=== PATIENT | female | born 1980 | race Caucasian/White ===

== ENCOUNTER 2017-04-06 02:17 | Emergency (ER) | payer SELFPAY ==
[~2017-04-06] VITALS: Ht 172.7 cm; Wt 75.0 kg
[~2017-04-06 02:17] MED LIST: ABILIFY10 MG PO; AMOXICILLIN500 MG PO; ATIVAN1 MG PO; CORTISPORIN OTI10 ML AD; FERROUS FUM324 MG PO; GABAPENTIN300 MG PO; HYDROCHLOROT12.5 MG PO; HYDROCHLOROT25 MG PO; LOSARTAN POT25 MG PO; LOSARTAN POT50 MG PO; PRILOSEC40 MG PO; PROTONIX40 MG PO; QVAR40 MCG IN; QVAR80 MCG IN; TRAZODONE100 MG PO; [UNRECOGNIZED DRUG - OTHER] PO
[2017-04-06 02:53] LABS: INFLUENZA A NONE DETECTED (NONE DETECT); INFLUENZA B NONE DETECTED (NONE DETECT)
[2017-04-06] MEDS ORDERED: AMOXICILLIN875 MG PO (03:04)
[2017-04-06] MEDS ORDERED: ROBITUSSIN AC10 ML PO (03:04)
[2017-04-06 03:19] VITALS: BP 138/100
== END 2017-04-06 03:25 | disposition home or self-care (01) | DRG 153 ==
LOC: ED 02:17
PROVIDERS: Emergency Medicine
DX: J02.0 Streptococcal pharyngitis (principal); F17.210 Nicotine dependence, cigarettes, uncomplicated; F41.9 Anxiety disorder, unspecified; F31.9 Bipolar disorder, unspecified; J45.909 Unspecified asthma, uncomplicated; K21.9 Gastro-esophageal reflux disease without esophagitis; I10 Essential (primary) hypertension

== ENCOUNTER 2017-07-25 10:36 | Emergency (ER) | payer SELFPAY ==
[~2017-07-25] VITALS: Ht 172.7 cm; Wt 81.8 kg
[~2017-07-25 10:36] MED LIST changes: +AMOXICILLIN875 MG PO; +ROBITUSSIN AC10 ML PO
[2017-07-25] MEDS ORDERED: LOSARTAN POT25 MG PO (10:49)
[2017-07-25] MEDS ORDERED: GABAPENTIN100 MG PO (10:49)
[2017-07-25] MEDS ORDERED: FAMOTIDINE20 M1 PO (10:49)
[2017-07-25 10:50] VITALS: BP 142/81
[2017-07-25] MEDS ORDERED: STERAPRED DS10 MG PO (11:09)
== END 2017-07-25 11:18 | disposition home or self-care (01) | DRG 74 ==
LOC: ED 10:36
DX: G56.02 Carpal tunnel syndrome, left upper limb (principal); M79.642 Pain in left hand; M79.7 Fibromyalgia; R20.2 Paresthesia of skin

== ENCOUNTER 2017-08-19 01:28 | Emergency (ER) | payer SELFPAY ==
[~2017-08-19] VITALS: Ht 172.7 cm; Wt 81.8 kg
[~2017-08-19 01:28] MED LIST changes: +FAMOTIDINE20 M1 PO; +GABAPENTIN100 MG PO; +STERAPRED DS10 MG PO
[2017-08-19 02:12] LABS: HEMATOCRIT 39.9 % (37.0-47.0); HEMOGLOBIN 13.3 g/dl (12.0-16.0); IMMATURE GRANULOCYTES 0.4 % (0.0-1.0); MEAN CELL VOLUME 88.3 fL CALC (80.0-100.0); MEAN CORPUSCULAR HGB 29.4 pG CALC (26.0-32.0); MEAN CORPUSCULAR HGB CONC 33.3 g/L CALC (32.0-36.0); NEUT# 3.17 thou/uL (2.00-7.15); RED BLOOD COUNT 4.52 mill/uL (4.20-5.60); RED CELL DISTRI WIDTH 13.2 % (11.5-15.5)
[2017-08-19 02:24] LABS: ALBUMIN 3.8 g/dL (3.2-5.0); ALKALINE PHOSPHATASE 108 u/l (38-126); ANION GAP 16 (6-22 (CALC)); BILIRUBIN, TOTAL 0.6 mg/dL (0.0-1.4); BUN 6 mg/dL (7-17); BUN/CREATININE RATIO 9 (12-20 (CALC)); CARBON DIOXIDE 25 mmol/l (22-30); CHLORIDE 104 mmol/l (95-108); CREATININE 0.7 mg/dL (0.5-1.0); GFR > 60 ML/MIN (>=60 (CALC)); GFR FOR AFR.AMER. > 60 ML/MIN (>=60 (CALC)); LIPASE 68 u/l (23-300); SGOT/AST 21 u/l (14-36); SGPT/ALT 35 u/l (9-52); SODIUM 142 mmol/l (137-146); TOTAL PROTEIN 7.2 g/dL (6.3-8.2)
[2017-08-19 02:31] LABS: ACT PARTIAL THROMBO TIME 28.3 SECONDS (20.0-32.5); PROTHROMBIN TIME 11.5 SECONDS (9.0-12.5)
[2017-08-19 02:36] LABS: MYOGLOBIN 43 ng/mL (0 - 62)
[2017-08-19 05:59] VITALS: BP 121/79
[2017-08-20] MEDS ORDERED: BACTRIM DS1 TAB PO (11:01)
[2017-08-20] MEDS ORDERED: KEFLEX500 M1 PO (11:01)
[2017-08-20] MEDS ORDERED: BACTROBAN TOP (11:03)
== END 2017-08-19 06:04 | disposition left against medical advice (07) | DRG 313 ==
LOC: ED 01:28
PROVIDERS: Emergency Medicine
DX: R07.9 Chest pain, unspecified (principal); I10 Essential (primary) hypertension; G62.9 Polyneuropathy, unspecified; F31.9 Bipolar disorder, unspecified; M79.7 Fibromyalgia; F17.210 Nicotine dependence, cigarettes, uncomplicated; Z91.19 Patient's noncompliance with other medical treatment and regimen

== ENCOUNTER 2017-08-20 10:26 | Emergency (ER) | payer SELFPAY ==
[~2017-08-20] VITALS: Ht 172.7 cm; Wt 79.0 kg
[2017-08-20] MEDS ORDERED: KEFLEX500 M1 PO (11:01)
[2017-08-20] MEDS ORDERED: BACTRIM DS1 TAB PO (11:01)
[2017-08-20] MEDS ORDERED: BACTROBAN TOP (11:03)
[2017-08-20 11:06] VITALS: BP 144/96
== END 2017-08-20 11:10 | disposition home or self-care (01) | DRG 600 ==
LOC: ED 10:26
DX: N61.1 Abscess of the breast and nipple (principal); L02.211 Cutaneous abscess of abdominal wall; G62.9 Polyneuropathy, unspecified; I10 Essential (primary) hypertension; F31.9 Bipolar disorder, unspecified; M79.7 Fibromyalgia; F17.210 Nicotine dependence, cigarettes, uncomplicated

== ENCOUNTER 2017-09-05 19:18 | Emergency (ER) | payer SELFPAY ==
[~2017-09-05] VITALS: Ht 172.7 cm; Wt 79.0 kg
[~2017-09-05 19:18] MED LIST changes: +BACTRIM DS1 TAB PO; +BACTROBAN TOP; +KEFLEX500 M1 PO
[2017-09-05 19:50] VITALS: BP 162/108
== END 2017-09-05 19:36 | disposition left against medical advice (07) | DRG 305 ==
LOC: ED 19:18
DX: I10 Essential (primary) hypertension (principal); G62.9 Polyneuropathy, unspecified; F31.9 Bipolar disorder, unspecified; M79.7 Fibromyalgia; F17.210 Nicotine dependence, cigarettes, uncomplicated; Z91.14 Patient's other noncompliance with medication regimen; Z91.19 Patient's noncompliance with other medical treatment and regimen

== ENCOUNTER 2017-11-04 22:11 | Emergency (ER) | payer SELFPAY ==
[~2017-11-04] VITALS: Ht 172.7 cm; Wt 72.7 kg
[2017-11-04 22:34] LABS: HEMATOCRIT 39.6 % (37.0-47.0); HEMOGLOBIN 13.4 g/dl (12.0-16.0); IMMATURE GRANULOCYTES 0.2 % (0.0-5.0); MEAN CORPUSCULAR HGB 29.8 pG CALC (26.0-32.0); MEAN CORPUSCULAR HGB CONC 33.8 g/L CALC (32.0-36.0); NEUT# 3.38 thou/uL (2.00-7.15); RED BLOOD COUNT 4.5 mill/uL (4.20-5.60); RED CELL DISTRI WIDTH 13.2 % (11.5-15.5)
[2017-11-04 22:44] LABS: ALBUMIN 4.1 g/dL (3.2-5.0); ALKALINE PHOSPHATASE 109 u/l (38-126); ANION GAP 16 (6-22 (CALC)); BILIRUBIN, TOTAL 0.7 mg/dL (0.0-1.4); BUN 11 mg/dL (7-17); BUN/CREATININE RATIO 13 (12-20 (CALC)); CARBON DIOXIDE 24 mmol/l (22-30); CHLORIDE 106 mmol/l (95-108); CREATININE 0.9 mg/dL (0.5-1.0); GFR > 60 ML/MIN (>=60 (CALC)); GFR FOR AFR.AMER. > 60 ML/MIN (>=60 (CALC)); POTASSIUM 3.1 mmol/l (3.5-5.1); SGOT/AST 28 u/l (14-36); SGPT/ALT 45 u/l (9-52); SODIUM 142 mmol/l (137-146); TOTAL PROTEIN 7.6 g/dL (6.3-8.2)
[2017-11-04 22:51] LABS: URINE BLOOD DIPSTICK NEGATIVE (NEGATIVE); URINE COLOR YELLOW; URINE GLUCOSE - DIPSTICK NEGATIVE (NEGATIVE); URINE KETONE 15 mg/dL (NEGATIVE); URINE LEUK ESTERASE NEGATIVE (NEGATIVE); URINE NITRITE - DIPSTICK NEGATIVE (Negative); URINE PROTEIN - DIPSTICK TRACE mg/dL (NEG-TRACE); URINE SPECIFIC GRAVITY 1.025
[2017-11-04 22:54] LABS: BARBITURATES NEGATIVE (NEGATIVE); COCAINE NEGATIVE (NEGATIVE); METHADONE NEGATIVE (NEGATIVE); OXCYCODONE NEGATIVE (NEGATIVE); TETRAHYDROCANNABIONOL NEGATIVE (NEGATIVE); TRICYLIC ANTIDEPRESSANTS NEGATIVE (NEGATIVE); URINE BILIRUBIN - DIPSTICK SMALL (NEGATIVE); URINE CLARITY CLEAR
[2017-11-04 22:56] LABS: MYOGLOBIN 43 ng/mL (0 - 62)
[2017-11-05 03:18] VITALS: BP 131/78
== END 2017-11-05 03:20 | disposition home or self-care (01) | DRG 313 ==
LOC: ED 22:11
PROVIDERS: Emergency Medicine
DX: R07.89 Other chest pain (principal); F19.10 Other psychoactive substance abuse, uncomplicated; I10 Essential (primary) hypertension; F31.9 Bipolar disorder, unspecified; M79.7 Fibromyalgia; G62.9 Polyneuropathy, unspecified; F41.9 Anxiety disorder, unspecified; F17.210 Nicotine dependence, cigarettes, uncomplicated

== ENCOUNTER → 2018-01-15 | Outpatient (REF) | payer OTHER | END | disposition home or self-care (01) | DRG 696 | LOC: LABSPEC 14:41 | PROVIDERS: ATTEND Nurse Practitioner Family | DX: R30.0 Dysuria (principal); A71.9 Trachoma, unspecified ==